=== PATIENT | female | born 1960 | race Caucasian/White ===

== ENCOUNTER 2020-02-07 08:58 | Outpatient (CLI) | payer OTHER ==
[~2020-02-07 08:58] MED LIST: ACETAMINOPHEN 325 MG TABLET PO PRN; DEXAMETHASONE 10 MG in NS 50 ML IV PRN; DIPHENHYDRAMINE 50 MG in NS 50 ML IV PRN; FERRIC CARBOXYMALTOSE 750 MG in NORMAL SALINE 250 ML IV PRN; NORMAL SALINE 250 ML @ KVO IV PRN
[2020-02-07 09:08] VITALS: BP 149/75
== END 2020-02-07 11:00 | disposition home or self-care (01) ==
LOC: II 08:58 → 5TH 09:01 → II 11:00
PROVIDERS: ATTEND Pediatrics
DX: D50.8 Other iron deficiency anemias (principal); K90.9 Intestinal malabsorption, unspecified
CPT/HCPCS: 96365; 96367; J1200; J7050; J1100; J1439

== ENCOUNTER → 2020-02-07 | Outpatient (CLI) | payer OTHER ==
--- NOTE | 2020-02-07 13:16 | RADIOLOGY REPORT (SQ) ---
EXAM DESCRIPTION: CT CHEST WITHOUT IMAGES COMPLETED DATE/TIME: 02/07/2020 12:31 pm REASON FOR STUDY: D50.8 OTHER IRON DEFICIENCY ANEMIAS D50.8 OTHER IRON DEFICIENCY ANEMIAS R10.9 UN SPECIFIED ABDOMINAL PAIN R06.02 SHORTNESS OF BREATH COMPARISON: None. TECHNIQUE: CT scan performed of the chest without intravenous contrast. Images reviewed with lung, soft tissue and bone windows. Reconstructed coronal and sagittal MPR images reviewed. All images st ored on PACS. All CT scanners at this facility use dose modulation, iterative reconstruction, and/or weight based d osing when appropriate to reduce radiation dose to as low as reasonably achievable (ALARA). [facility]: Dose Right [facility]: CareDose [facility]: Dose Right [facility]: Teradose 4D [facility]: [employer] RADIATION DOSE: mGy. LIMITATIONS: No technical limitations. FINDINGS: LUNGS AND PLEURA: Linear atelectasis in the right base. No acute infiltrate or effusion. No mass. HILAR AND MEDIASTINAL STRUCTURES: There appears to be thickening of the wall the distal esophagus. HEART AND VASCULAR STRUCTURES: No aneurysm. No pericardial effusion. UPPER ABDOMEN: See separate report of the CT of the abdomen. THYROID AND OTHER SOFT TISSUES: No masses. No adenopathy. BONES: No significant finding. HARDWARE: None in the chest. OTHER: No other significant findings. IMPRESSION: Questionable thickening of the wall of the distal esophagus. Correlate clinically. TECHNICAL DOCUMENTATION: JOB ID: [id number] Quality ID # [id number]: Final reports with documentation of one or more dose reduction techniques (e.g., Au tomated exposure control, adjustment of the mA and/or kV according to patient size, use of iterative reconstruction technique) 2010 [employer]- All Rights Reserved Reading location - IP/workstation name: [email or web address]
--- NOTE | 2020-02-07 13:23 | RADIOLOGY REPORT (SQ) ---
EXAM DESCRIPTION: CT ABD/PELVIS NO ORAL OR IV IMAGES COMPLETED DATE/TIME: 02/07/2020 12:31 pm REASON FOR STUDY: D50.8 OTHER IRON DEFICIENCY ANEMIAS D50.8 OTHER IRON DEFICIENCY ANEMIAS R10.9 UN SPECIFIED ABDOMINAL PAIN R06.02 SHORTNESS OF BREATH COMPARISON: None. TECHNIQUE: CT scan of the abdomen and pelvis performed without intravenous or oral contrast. Images reviewed with lung, soft tissue, and bone windows. Reconstructed coronal and sagittal MPR images revi ewed. All images stored on PACS. All CT scanners at this facility use dose modulation, iterative reconstruction, and/or weight based d osing when appropriate to reduce radiation dose to as low as reasonably achievable (ALARA). [facility]: Dose Right [facility]: CareDose [facility]: Dose Right [facility]: Teradose 4D [facility]: [employer] RADIATION DOSE: CT Rad equipment meets quality standard of care and radiation dose reduction techniq ues were employed. CTDIvol: 14.6 - 23.9 mGy. DLP: 1970 mGy-cm.mGy. LIMITATIONS: None. FINDINGS: LOWER CHEST: See separate report of the CT of the chest. NON-CONTRASTED LIVER, SPLEEN, ADRENALS: Evaluation limited by lack of IV contrast. No identified sign ificant masses. PANCREAS: No masses. No peripancreatic inflammatory changes. GALLBLADDER: Surgically absent. RIGHT KIDNEY AND URETER: No suspicious masses. Assessment limited by lack of IV contrast. No signif icant calcifications. No hydronephrosis or hydroureter. LEFT KIDNEY AND URETER: No suspicious masses. Assessment limited by lack of IV contrast. No signifi cant calcifications. No hydronephrosis or hydroureter. AORTA AND RETROPERITONEUM: No aneurysm. No retroperitoneal masses or adenopathy. BOWEL AND PERITONEAL CAVITY: Apparent gastric sleeve surgery. Retained stool. No obvious bowel mass . Mild diverticulosis with no acute inflammation. APPENDIX: Normal. PELVIS, BLADDER, AND ABDOMINAL WALL:No abnormal masses. No free fluid. Bladder normal. BONES: No significant findings. OTHER: No other significant finding. IMPRESSION: Possible constipation. Mild diverticulosis coli. No other significant findings. COMMENT: Quality ID # 436: Final reports with documentation of one or more dose reduction techniques (e.g., Automated exposure control, adjustment of the mA and/or kV according to patient size, use of iterative reconstruction technique) TECHNICAL DOCUMENTATION: JOB ID: [id number] 2010 [employer]- All Rights Reserved Reading location - IP/workstation name: [email or web address]
--- NOTE | 2020-02-07 13:28 | RADIOLOGY REPORT (SQ) ---
EXAM DESCRIPTION: CT SOFT TISSUE NECK WITHOUT IMAGES COMPLETED DATE/TIME: 02/07/2020 12:31 pm REASON FOR STUDY: D50.8 OTHER IRON DEFICIENCY ANEMIAS D50.8 OTHER IRON DEFICIENCY ANEMIAS R10.9 UN SPECIFIED ABDOMINAL PAIN R06.02 SHORTNESS OF BREATH COMPARISON: None. TECHNIQUE: Noncontrast scanning from skull base through lung apices with review of bone, soft tissue and lung windows. Reconstructed coronal and sagittal MPR images reviewed. All images stored on PAC S. All CT scanners at this facility use dose modulation, iterative reconstruction, and/or weight based d osing when appropriate to reduce radiation dose to as low as reasonably achievable (ALARA). [facility]: Dose Right [facility]: CareDose [facility]: Dose Right [facility]: Teradose 4D [facility]: [employer] RADIATION DOSE: mGy. LIMITATIONS: None. FINDINGS: SKULL BASE: Intact. MAJOR SALIVARY GLANDS: No masses or inflammatory changes. The left submandibular gland appears to be absent. LYMPHADENOPATHY: Submandibular, submental, and cervical nodes are present. The largest cervical node measures 10.2 mm in short axis on the right on image 58. MUCOSAL MASSES OR ASYMMETRY: No mucosal masses or asymmetry. LARYNX/CORDS: No abnormal findings. LUNG APICES: Clear. BONES: Intact. THYROID: Normal size. No masses. PARANASAL SINUSES: Clear. OTHER: No other significant finding. IMPRESSION: 1. Left submandibular gland is absent. 2. Lymph nodes as described. TECHNICAL DOCUMENTATION: JOB ID: [id number] Quality ID # [id number]: Final reports with documentation of one or more dose reduction techniques (e.g., Au tomated exposure control, adjustment of the mA and/or kV according to patient size, use of iterative reconstruction technique) 2010 [employer]- All Rights Reserved Reading location - IP/workstation name: [email or web address]
== END ==
LOC: RAD 11:34
PROVIDERS: ATTEND Physician Assistant Medical
DX: D50.8 Other iron deficiency anemias (principal); R10.9 Unspecified abdominal pain; R06.02 Shortness of breath; R59.0 Localized enlarged lymph nodes; C49.A0 Gastrointestinal stromal tumor, unspecified site
CPT/HCPCS: 70490; 71250; 74176

== ENCOUNTER → 2020-03-10 | Outpatient (CLI) | payer MEDICARE, OTHER ==
--- NOTE | 2020-03-10 17:05 | RADIOLOGY REPORT (SQ) ---
EXAM DESCRIPTION: PET CT SKULL/THIGH IMAGES COMPLETED DATE/TIME: 03/10/2020 3:08 pm REASON FOR STUDY: (C49.A0)GASTROINTESTINAL STROMAL TUMOR, UNSPECIFIED SITE C49.A0 GASTROINTESTINAL STROMAL TUMOR, UNSPECIFIED SITE COMPARISON: CT chest abdomen pelvis dated 02/07/2020 RADIONUCLIDE AND DOSE: 8.46 mCi F18 FDG The route of agent administration: Intravenous FASTING BLOOD SUGAR: 115 mg/dl CONTRAST TYPE AND DOSE: No CT contrast given. TECHNIQUE: Blood glucose level was verified. Above dose of FDG was injected intravenously. 2-D seg mented attenuation correction images were obtained from the base of the skull to the midthighs. Nonc ontrast CT images were obtained for attenuation correction and fusion with emission images. CT image s were performed without oral or intravenous contrast and are not sensitive for parenchymal lesions. A series of overlapping emission PET images were obtained. Images reviewed and manipulated at [facility] work station by the radiologist. Images stored on PACS. LIMITATIONS: None. FINDINGS: HEAD AND NECK: Symmetric uptake at the level of glottis consistent with physiologic uptake . CHEST: No areas of abnormal metabolic activity in the chest. ABDOMEN AND PELVIS: No areas of abnormal metabolic activity in the abdomen or pelvis. Expected physi ologic activity is present in the genitourinary system and bowel. PROXIMAL LOWER EXTREMITIES: No areas of abnormal metabolic activity in the soft tissues of the lower extremities. BONES: No abnormal metabolic activity in the visualized skeleton. ADDITIONAL CT FINDINGS: Postsurgical changes in the epigastric region slight thickening of the distal esophagus. No abnormal metabolic activity. OTHER: No other significant findings. IMPRESSION: Negative PET-CT. TECHNICAL DOCUMENTATION: JOB ID: [id number] 2010 [employer]- All Rights Reserved Reading location - IP/workstation name: [email or web address]
== END ==
LOC: RAD 03-03 09:00
PROVIDERS: ATTEND Internal Medicine
DX: C49.A0 Gastrointestinal stromal tumor, unspecified site (principal)
CPT/HCPCS: 78815; A9552

== ENCOUNTER 2020-04-01 07:12 | Day surgery (SDC) | payer OTHER ==
[2020-04-01] MEDS ORDERED: PROPOFOL INJ 200 MG/20 ML VIAL IV ONE ×2 (07:41→10:30)
[2020-04-01] MEDS ORDERED: LIDOCAINE 2% INJ-PF (20 MG/ML) 10 ML AMPUL ONE (07:41)
--- NOTE | 2020-04-01 09:18 | Operative Report ---
Operative Report DATE OF SURGERY: 04/01/20 Operative Report: The risk, benefits and alternatives of the procedure including the risk of bleeding, perforation requiring surgery have been explained to the patient in detail and informed consent has been obtained. Patient is placed in the left, lateral decubital position. Timeout was called. Propofol medication is administered. Rectal examination is done which did not reveal any masses, tears or fissures. An Olympus videoscope was introduced into the patient's rectum and subsequently advanced all the way to the cecum. Prep is unfortunately limiting factor areas where prep is not well done. Cecum was reached and identified by the ileocecal valve. Photodocumentation was obtained. Scope was then sequentially pulled back via the various segments of the colon including the ascending colon, hepatic flexure, transverse colon, splenic flexure, descending colon finally in to the rectosigmoid portions of the colon. Retroflexion maneuver is performed. Following this the patient structures turnaround and the upper endoscopy performed. A GIF 130 Olympus videoscope is inserted into the patient's mouth and hypopharynx the esophagus is identified intubated and insufflated scope was then gradually advanced and was towards the distal esophagus entering the sto mach visualization is obtained gastric outlet is intubated first and second portions of the duodenum I evaluated scope was then pulled back out into the antral cavity and retroflexed the cardia fundus incisura angularis is noted scope was unretroflexed [place] section outpatient stomach and the procedure completed. Patient tolerated the procedure well. PREOPERATIVE DIAGNOSIS: Change of bowel habits. Gastroesophageal reflux disease with possible remote history of possible GIST POSTOPERATIVE DIAGNOSIS: Incomplete colonoscopy. Prep is somewhat limited bed prep. Diverticulosis without any evidence of diverticulitis. Internal hemorrhoids. Gastritis status post biopsy. Hiatal hernia OPERATION: Incomplete colonoscopy with biopsy. Gastritis with biopsy SURGEON: DALE GASPAR ANESTHESIA: LMAC TISSUE REMOVED OR ALTERED: As noted above. COMPLICATIONS: None. ESTIMATED BLOOD LOSS: None. INTRAOPERATIVE FINDINGS: As noted above. PROCEDURE: Patient tolerated the procedure well. No immediate postprocedure complications are noted. Patient is discharged in good condition. Discharge date 04/01/2020. Discharge diet: Regular. Discharge activity: Regular. 2 to 3-week follow-up to discuss findings. Patient is instructed call the office or proceed to the emergency room should there be any further problems or questions. Wait on the pathology.
[2020-04-01 09:51] VITALS: BP 154/76
== END 2020-04-01 10:56 | disposition home or self-care (01) ==
LOC: END 07:12
PROVIDERS: ATTEND Internal Medicine Gastroenterology
DX: K57.30 Diverticulosis of large intestine without perforation or abscess without bleeding (principal); K64.8 Other hemorrhoids; K29.50 Unspecified chronic gastritis without bleeding; K44.9 Diaphragmatic hernia without obstruction or gangrene; Z03.818 Encounter for observation for suspected exposure to other biological agents ruled out; D50.9 Iron deficiency anemia, unspecified; I10 Essential (primary) hypertension; Z79.899 Other long term (current) drug therapy; Z88.2 Allergy status to sulfonamides; Z88.1 Allergy status to other antibiotic agents
CPT/HCPCS: 43239; 45380; 87635; 88305 ×2; J2704; J3490; C9803

== ENCOUNTER 2020-04-22 07:34 | Day surgery (SDC) | payer OTHER ==
[~2020-04-22 07:34] MED LIST changes: -ACETAMINOPHEN 325 MG TABLET PO PRN; -DEXAMETHASONE 10 MG in NS 50 ML IV PRN; -DIPHENHYDRAMINE 50 MG in NS 50 ML IV PRN; -FERRIC CARBOXYMALTOSE 750 MG in NORMAL SALINE 250 ML IV PRN; -NORMAL SALINE 250 ML @ KVO IV PRN; +PROPOFOL INJ 200 MG/20 ML VIAL IV ONE
[2020-04-22] MEDS ORDERED: PROMETHAZINE HCL INJ 25 MG/1 ML VIAL ONE (08:19)
[2020-04-22] MEDS ORDERED: PROPOFOL INJ 200 MG/20 ML VIAL IV ONE (08:41)
--- NOTE | 2020-04-22 09:06 | Operative Report ---
Operative Report DATE OF SURGERY: 04/22/20 Operative Report: The risk, benefits and alternatives of the procedure including the risk of bleeding, perforation requiring surgery have been explained to the patient in detail and informed consent has been obtained. Patient is placed in the left, lateral decubital position. Timeout was called. Propofol medication is administered. Rectal examination is done which did not reveal any masses, tears or fissures. An Olympus videoscope was introduced into the patient's rectum. It is carefully maneuvered to the cecum. Cecum was identified by the usual anatomical landmarks of the ileocecal valve and the appendiceal office. And photodocumentation was obtained. The scope was then sequentially pulled back via the various segments of the colon including the ascending colon, hepatic flexure, transverse colon, splenic flexure, descending colon and finally into the rectosigmoid portions of the colon. Retroflexion maneuver is performed. PREOPERATIVE DIAGNOSIS: Iron deficiency anemia, rule out GI bleed. Inadequate prep on the previous attempt and in the past had an incomplete colonoscopy POSTOPERATIVE DIAGNOSIS: Colonoscopy is completed to the cecum. Redundant colon on the left side. Difficult angulation at the area of the splenic flexure but once this was passed the rest of the colon to the cecum is able to be done. Right sidecolon Inflammation status post biopsy. Diverticulosis. Internal hemorrhoids OPERATION: Colonoscopy with biopsy SURGEON: DALE GASPAR ANESTHESIA: LMAC TISSUE REMOVED OR ALTERED: As noted above. COMPLICATIONS: None. ESTIMATED BLOOD LOSS: None. INTRAOPERATIVE FINDINGS: As noted above. PROCEDURE: Patient tolerated the procedure well. No immediate postprocedure complications are noted. Patient is spontaneously passing flatus. She is discharged in good condition. Discharge date 04/22/2020. Discharge diet: Regular. Discharge activity: Regular. 2 to 3-week follow-up to discuss findings. Patient is instructed call the office or proceed to the emergency room should there be any further problems or questions. Wait on the pathology.
[2020-04-22 10:17] VITALS: BP 155/69
--- NOTE | 2020-04-22 14:24 | RADIOLOGY REPORT (SQ) ---
EXAM DESCRIPTION: CHEST SINGLE VIEW IMAGES COMPLETED DATE/TIME: 04/22/2020 9:32 am REASON FOR STUDY: ASPIRATION COMPARISON: None. EXAM PARAMETERS: NUMBER OF VIEWS: One view. TECHNIQUE: Single frontal radiographic view of the chest acquired. RADIATION DOSE: NA LIMITATIONS: Overlapping breast tissue. FINDINGS: LUNGS AND PLEURA: Nonspecific elevation right diaphragm. No opacities, masses or pneumoth orax. No pleural effusion. MEDIASTINUM AND HILAR STRUCTURES: No masses. Contour normal. HEART AND VASCULAR STRUCTURES: Heart normal in size. Normal vasculature. BONES: No acute findings. HARDWARE: None in the chest. OTHER: No other significant finding. IMPRESSION: NO ACUTE RADIOGRAPHIC FINDING IN THE CHEST. TECHNICAL DOCUMENTATION: JOB ID: [id number] 2010 [employer]- All Rights Reserved Reading location - IP/workstation name: [email or web address]
== END 2020-04-22 10:25 | disposition home or self-care (01) ==
LOC: END 07:34
PROVIDERS: ATTEND Internal Medicine Gastroenterology
DX: K62.89 Other specified diseases of anus and rectum (principal); K57.30 Diverticulosis of large intestine without perforation or abscess without bleeding; K44.9 Diaphragmatic hernia without obstruction or gangrene; K64.8 Other hemorrhoids; D50.9 Iron deficiency anemia, unspecified; K21.9 Gastro-esophageal reflux disease without esophagitis; F41.9 Anxiety disorder, unspecified; I10 Essential (primary) hypertension; F32.9 Major depressive disorder, single episode, unspecified; E07.9 Disorder of thyroid, unspecified; Z80.0 Family history of malignant neoplasm of digestive organs; Z79.899 Other long term (current) drug therapy; Z90.49 Acquired absence of other specified parts of digestive tract; Z79.890 Hormone replacement therapy
CPT/HCPCS: 45380; 88305 ×2; 71045; J2550; J2704